=== PATIENT | female | born 1995 | race Hispanic/Latino ===

== ENCOUNTER 2018-08-19 20:22 | Emergency (ER) | payer OTHER ==
[2018-08-19 21:50] LABS: Urine Blood NEGATIVE (NEG); Urine Glucose NEGATIVE (NEG); Urine Protein NEGATIVE (NEG); Urine Specific Gravity 1.025 (1.005-1.030)
[2018-08-19 22:17] LABS: Absolute Lymphocytes (CBC) 1.2 K/uL (0.7-4.9); Absolute Monocytes 0.6 K/uL (0.1-1.3); Absolute Neutrophil 8.3 K/uL (1.8-8.0); Basophils % 0.2 % (0-1.3); Eosinophils % 0.7 % (0-4.4); Hematocrit 35.3 % (36.0-45.0); Lymphocytes % 11.8 % (15.3-44.8); MPV 10.6 fL (7.6-11.3); Monocytes % 5.7 % (3.3-12.3); RBC Red Blood Cell Count 3.94 M/uL (3.86-4.86)
[2018-08-19] MEDS ORDERED: ONDANSETRON 4 MG/2 ML VIAL ONE (22:21)
[2018-08-19] MEDS ORDERED: NA CHLORIDE 0.9% 1,000 ML ONE (22:21)
[2018-08-19 22:31] LABS: BUN Blood Urea Nitrogen 9 mg/dL (7-18); Bicarbonate 24 mmol/L (21-32); Glucose Level 78 mg/dL (74-106); Potassium 3.6 mmol/L (3.5-5.1); Sodium Level 137 mmol/L (136-145)
--- NOTE | 2018-08-19 23:17 | ER ---
Nurse's Notes [facility] Name: Jaylen Buck Age: 22 yrs Sex: Female : 1995 Arrival Date: 08/19/2018 Time: 20:29 Bed 6 Private MD: Diagnosis: Dehydration;Gastroenteritis Presentation: 08/19 20:39 Presenting complaint: Patient states: N/V since last night. Transition of care: patient aj was not received from another setting of care. Onset of symptoms was August 18, 2018. Risk Assessment: Do you want to hurt yourself or someone else? Patient reports no desire to harm self or others. Initial Sepsis Screen: Does the patient meet any 2 criteria? No. Patient's initial sepsis screen is negative. Does the patient have a suspected source of infection? No. Patient's initial sepsis screen is negative. Care prior to arrival: None. 20:39 Method Of Arrival: Ambulatory aj 20:39 Acuity: EARL 4 aj Triage Assessment: 20:40 General: Appears in no apparent distress. comfortable, Behavior is calm, cooperative, aj appropriate for age. Pain: Denies pain. Neuro: Level of Consciousness is awake, alert, obeys commands, Oriented to person, place, time, situation, Appropriate for age. Respiratory: Airway is patent Respiratory effort is even, unlabored, Respiratory pattern is regular, symmetrical. GI: Reports nausea, vomiting. Derm: Skin is intact, is healthy with good turgor, Skin is pink, warm \T\ dry. normal. 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 - Social history:: Smoking status: Patient/guardian denies using tobacco. - Ebola Screening: : Patient negative for fever greater than or equal to 101.5 degrees Fahrenheit, and additional compatible Ebola Virus Disease symptoms Patient denies exposure to infectious person Patient denies travel to an Ebola-affected area in the 21 days before illness onset No symptoms or risks identified at this time. Screenin:20 Abuse screen: Denies threats or abuse. Nutritional screening: No deficits noted. ea Tuberculosis screening: No symptoms or risk factors identified. Fall Risk None identified. Assessment: 22:15 General: Appears uncomfortable, Behavior is calm, cooperative, appropriate for age. ea Pain: Denies pain. Neuro: Level of Consciousness is awake, alert, obeys commands, Oriented to person, place, time, situation. Cardiovascular: Patient's skin is warm and dry. Respiratory: Airway is patent Respiratory effort is even, unlabored, Respiratory pattern is regular, symmetrical. GI: Bowel sounds present X 4 quads. Reports vomiting. GI: Abdomen is round. Derm: Skin is pink, warm \T\ dry. 23:02 Reassessment: Patient and/or family updated on plan of care and expected duration. Pain ea level reassessed. Patient is alert, oriented x 3, equal unlabored respirations, skin warm/dry/pink. 23:32 Reassessment: Patient and/or family updated on plan of care and expected duration. Pain ea level reassessed. Patient is alert, oriented x 3, equal unlabored respirations, skin warm/dry/pink. Discharge instructions given to patient, verbalized the understanding of instruction Patient states feeling better. Patient states symptoms have improved. Vital Signs: 20:40 BP 102 / 58; Pulse 78; Resp 20; Temp 98.1; Pulse Ox 100% on R/A; Weight 58.97 kg; aj Height 5 ft. 2 in. (157.48 cm); 22:15 BP 104 / 66; Pulse 70; Resp 18; Pulse Ox 98% on R/A; ea 23:30 BP 103 / 62; Pulse 67; Resp 18; Pulse Ox 98% on R/A; ea 20:40 Body Mass Index 23.78 (58.97 kg, 157.48 cm) aj ED Course: 20:29 Patient arrived in ED. am2 20:40 Triage completed. aj 20:40 Arm band placed on left wrist. Patient placed in waiting room, Patient notified of wait aj time. 21:43 Lavon Garrett PA is PHCP. jr8 21:43 Landon Yarbrough MD is Attending Physician. jr8 22:03 Inserted saline lock: 20 gauge in right antecubital area, using aseptic technique. mw2 Blood collected. 22:15 Taylor Gonzalez, RN is Primary Nurse. ea 22:20 Patient has correct armband on for positive identification. Bed in low position. Call ea light in reach. Side rails up X 1. 23:32 IV discontinued, intact, bleeding controlled, No redness/swelling at site. Pressure ea dressing applied. 23:33 No provider procedures requiring assistance completed. ea Administered Medications: 22:15 Drug: NS 0.9% 1000 ml Route: IV; Rate: 1000 ml; Site: right antecubital; ea 23:10 Follow up: Response: No adverse reaction; IV Status: Completed infusion; IV Intake: ea 1000ml 22:15 Drug: Zofran 4 mg Route: IVP; Site: right antecubital; ea 23:00 Follow up: Response: No adverse reaction; Marked relief of symptoms ea Intake: 23:10 IV: 1000ml; Total: 1000ml. ea Outcome: 23:16 Discharge ordered by MD. thomas 23:32 Discharged to home ambulatory, with family. ea 23:32 Condition: improved 23:32 Discharge instructions given to patient, Instructed on discharge instructions, follow up and referral plans. medication usage, Demonstrated understanding of instructions, follow-up care, medications, Prescriptions given X 1. 23:35 Patient left the ED. ea Signatures: Alta Manning RN Lavon Mccord PA PA jrAlta Velasco am2 Taylor Gonzalez RN RN ea [place], MyKena mw2
--- NOTE | 2018-08-19 23:17 | EDPHYS ---
Physician Documentation [facility] Name: Jaylen Buck Age: 22 yrs Sex: Female : 1995 Arrival Date: 08/19/2018 Time: 20:29 Bed 6 Private MD: ED Physician Landon Yarbrough HPI: 08/19 23:13 This 22 yrs old Female presents to ER via Ambulatory with complaints of jr8 Nausea/Vomiting - 16 WKS PREG. 23:13 The patient presents to the emergency department with nausea, vomiting, diarrhea. jr8 Onset: The symptoms/episode began/occurred acutely, today. Possible causes: unknown. The symptoms are aggravated by nothing. The symptoms are alleviated by nothing. Associated signs and symptoms: The patient has no apparent associated signs or symptoms. Severity of symptoms: At their worst the symptoms were mild in the emergency department the symptoms are unchanged. The patient has not experienced similar symptoms in the past. The patient has not recently seen a physician. 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 - Social history:: Smoking status: Patient/guardian denies using tobacco. - Ebola Screening: : Patient negative for fever greater than or equal to 101.5 degrees Fahrenheit, and additional compatible Ebola Virus Disease symptoms Patient denies exposure to infectious person Patient denies travel to an Ebola-affected area in the 21 days before illness onset No symptoms or risks identified at this time. ROS: 23:13 Eyes: Negative for injury, pain, redness, and discharge, ENT: Negative for injury, jr8 pain, and discharge, Neck: Negative for injury, pain, and swelling, Cardiovascular: Negative for chest pain, palpitations, and edema, Respiratory: Negative for shortness of breath, cough, wheezing, and pleuritic chest pain, Back: Negative for injury and pain, MS/Extremity: Negative for injury and deformity, Skin: Negative for injury, rash, and discoloration, Neuro: Negative for headache, weakness, numbness, tingling, and seizure. 23:13 Abdomen/GI: Positive for nausea, vomiting, and diarrhea, Negative for abdominal pain, abdominal distension, anorexia, dysphagia, hematemesis, black/tarry stool, rectal pain, rectal bleeding, bowel incontinence, flatulence. Exam: 23:13 Eyes: Pupils equal round and reactive to light, extra-ocular motions intact. Lids and jr8 lashes normal. Conjunctiva and sclera are non-icteric and not injected. Cornea within normal limits. Periorbital areas with no swelling, redness, or edema. ENT: Nares patent. No nasal discharge, no septal abnormalities noted. Tympanic membranes are normal and external auditory canals are clear. Oropharynx with no redness, swelling, or masses, exudates, or evidence of obstruction, uvula midline. Mucous membranes moist. Neck: Trachea midline, no thyromegaly or masses palpated, and no cervical lymphadenopathy. Supple, full range of motion without nuchal rigidity, or vertebral point tenderness. No Meningismus. Cardiovascular: Regular rate and rhythm with a normal S1 and S2. No gallops, murmurs, or rubs. Normal PMI, no JVD. No pulse deficits. Respiratory: Lungs have equal breath sounds bilaterally, clear to auscultation and percussion. No rales, rhonchi or wheezes noted. No increased work of breathing, no retractions or nasal flaring. Abdomen/GI: Soft, non-tender, with normal bowel sounds. No distension or tympany. No guarding or rebound. No evidence of tenderness throughout. Back: No spinal tenderness. No costovertebral tenderness. Full range of motion. Skin: Warm, dry with normal turgor. Normal color with no rashes, no lesions, and no evidence of cellulitis. MS/ Extremity: Pulses equal, no cyanosis. Neurovascular intact. Full, normal range of motion. Neuro: Awake and alert, GCS 15, oriented to person, place, time, and situation. Cranial nerves II-XII grossly intact. Motor strength 5/5 in all extremities. Sensory grossly intact. Cerebellar exam normal. Normal gait. Vital Signs: 20:40 BP 102 / 58; Pulse 78; Resp 20; Temp 98.1; Pulse Ox 100% on R/A; Weight 58.97 kg; aj Height 5 ft. 2 in. (157.48 cm); 22:15 BP 104 / 66; Pulse 70; Resp 18; Pulse Ox 98% on R/A; ea 23:30 BP 103 / 62; Pulse 67; Resp 18; Pulse Ox 98% on R/A; ea 20:40 Body Mass Index 23.78 (58.97 kg, 157.48 cm) aj MDM: 21:43 Patient medically screened. [facility] 23:13 Data reviewed: vital signs, nurses notes, lab test result(s), and as a result, I will [facility] discharge patient. Data interpreted: Pulse oximetry: on room air is 100 %. Interpretation: normal. Counseling: I had a detailed discussion with the patient and/or guardian regarding: the historical points, exam findings, and any diagnostic results supporting the discharge/admit diagnosis, lab results, the need for outpatient follow up, a family practitioner, to return to the emergency department if symptoms worsen or persist or if there are any questions or concerns that arise at home. Response to treatment: the patient's symptoms have markedly improved after treatment, patient is well hydrated. 08/19 21:48 Order name: Urine Dipstick--Ancillary (enter results) 08/19 21:48 Order name: Urine --Ancillary (enter results) 08/19 21:49 Order name: CBC with Diff [facility] 08/19 21:49 Order name: Basic Metabolic Panel [facility] 08/19 21:51 Order name: Urine --Ancillary; Complete Time: 22:51 [facility]CO 08/19 21:51 Order name: Urine Dipstick-Ancillary; Complete Time: 22:51 EDMS 08/19 21:49 Order name: IV; Complete Time: 22:15 [facility] 08/19 22:18 Order name: CBC with Automated Diff; Complete Time: 22:51 EDMS 08/19 22:31 Order name: Basic Metabolic Panel; Complete Time: 22:51 EDMS Administered Medications: 22:15 Drug: NS 0.9% 1000 ml Route: IV; Rate: 1000 ml; Site: right antecubital; ea 23:10 Follow up: Response: No adverse reaction; IV Status: Completed infusion; IV Intake: ea 1000ml 22:15 Drug: Zofran 4 mg Route: IVP; Site: right antecubital; ea 23:00 Follow up: Response: No adverse reaction; Marked relief of symptoms ea Disposition: 08/19/18 23:16 Discharged to Home. Impression: Dehydration, Gastroenteritis. - Condition is Stable. - Discharge Instructions: Dehydration, Adult. - Prescriptions for Zofran 4 mg Oral Tablet - take 1 tablet by ORAL route every 12 hours As needed; 20 tablet. - Medication Reconciliation Form, Thank You Letter, Antibiotic Education, Prescription Opioid Use form. - Follow up: Private Physician; When: 2 - 3 days; Reason: Recheck today's complaints, Continuance of care, Re-evaluation by your physician. - Problem is new. - Symptoms have improved. Signatures: Dispatcher [employer] EDCO Alta Manning, RN RN Lavon Andrade PA PA jr8 Taylor Gonzalez RN RN ea Corrections: (The following items were deleted from the chart) 23:35 23:16 08/19/2018 23:16 Discharged to Home. Impression: Dehydration; Gastroenteritis. ea Condition is Stable. Forms are Medication Reconciliation Form, Thank You Letter, Antibiotic Education, Prescription Opioid Use. Follow up: Private Physician; When: 2 - 3 days; Reason: Recheck today's complaints, Continuance of care, Re-evaluation by your physician. Problem is new. Symptoms have improved. jr8
== END 2018-08-19 23:35 | disposition home or self-care (01) ==
LOC: ER 20:22
DX: E86.0 Dehydration (principal); K52.9 Noninfective gastroenteritis and colitis, unspecified; Z3A.16 16 weeks gestation of pregnancy
CPT/HCPCS: 36415; 80048; 81003; 81025; 85025; J2405; J7030